=== PATIENT | female | born 1950 | race Caucasian/White ===

== ENCOUNTER 2018-09-15 09:51 | Emergency (ER) | payer MEDICARE, MEDICAID ==
[~2018-09-15] VITALS: Ht 170.2 cm; Wt 90.7 kg
[2018-09-15 09:58] VITALS: BP 130/98
== END 2018-09-15 10:49 | disposition left against medical advice (07) ==
LOC: EDBD 09:51 → ER 09:51
DX: R07.89 Other chest pain (principal); Z53.29 Procedure and treatment not carried out because of patient's decision for other reasons; Z88.0 Allergy status to penicillin
CPT/HCPCS: 71045; 93005

== ENCOUNTER → 2019-06-06 | Emergency (ER) | payer MEDICARE, MEDICAID | END | disposition left against medical advice (07) | LOC: ER 18:59 | DX: M79.646 Pain in unspecified finger(s) (principal); Z53.21 Procedure and treatment not carried out due to patient leaving prior to being seen by health care provider ==

== ENCOUNTER 2021-05-13 17:38 | Inpatient (IN) | payer MEDICARE, MEDICAID ==
[~2021-05-13] VITALS: Ht 162.6 cm; Wt 117.6 kg
[2021-05-13] MEDS ORDERED: DexAMETHasone SOD PHOS 10MG/1ML VIAL INJ IV ONE (19:00)
[2021-05-13 19:23] LABS: Basophils # (auto) 0 10 ^3/uL (0-0.2); Basophils % (auto) 0.3 % (0.0-2.0); Eosinophils # (auto) 0 10 ^3/uL (0-0.8); Hematocrit 38.4 % (36.0-46.0); Hemoglobin 13.1 g/dL (12.2-16.2); Lymphocytes # (auto) 0.6 10 ^3/uL (0.4-5.4); Lymphocytes % (auto) 8.3 % (10.0-50.0); Mean Corpuscular Hemoglobin 30.1 pg (28.0-32.0); Mean Corpuscular Hgb Conc. 34.2 g/dL (32.0-36.0); Mean Corpuscular Volume 88.1 fL (80.0-100.0); Monocytes % (auto) 13.4 % (0.0-12.0); Neutrophils # (auto) 5.6 10 ^3/uL (1.6-8.6); Nucleated Red Blood Cells % 1.1 %; Red Blood Cells 4.36 10^6/uL (4.0-5.20); Red Cell Distribution Width 14.2 % (11.8-14.3); White Blood Cell 7.2 10^3/uL (4.4-10.8)
[2021-05-13 19:41] LABS: Lactic Acid w/Reflex 2.2 mmol/L (0.4-2.0)
[2021-05-13 19:45] LABS: Albumin 2.4 g/dL (3.4-5.0); Calcium 7.8 mg/dL (8.5-10.1)
[2021-05-13 19:51] LABS: BUN/Creatinine Ratio 23.5; Bilirubin, Total 0.8 mg/dL (0.2-1.0); Total Protein 6.2 g/dL (6.4-8.2)
[2021-05-13 20:02] LABS: Potassium 2.8 mmol/L (3.5-5.1)
[2021-05-13] MEDS ORDERED: POTASSIUM CHL 20 Meq TABLET PO ONE (20:30)
[2021-05-13] MEDS ORDERED: ONDANSETRON HCL 4 MG/2 ML VIAL IV PRN (21:45)
[2021-05-13] MEDS ORDERED: ACETAMINOPHEN 500 MG TAB PO PRN (21:45)
[2021-05-13] MEDS ORDERED: AZITHROMYCIN 500MG/ 250ML 250 ML IV SCH (21:45)
[2021-05-13] MEDS ORDERED: DEXTROSE (50%) 50ML SYRG IV PRN (21:45)
[2021-05-13] MEDS ORDERED: MORPHINE SULFATE INJECTION 2 MG/ML SYRG IV PRN (21:45)
[2021-05-13] MEDS ORDERED: NITROGLYCERIN 0.4 MG SL TAB SL PRN (21:45)
[2021-05-13] MEDS: BUDESONIDE (INHALATION) 180 MCG IH IN SCH (22:00)
[2021-05-13] MEDS ORDERED: ATORVASTATIN 20 MG TAB PO SCH (22:00)
[2021-05-13] MEDS ORDERED: levoFLOXacin 250MG 50 ML IV ONE ×2 (22:30→23:04)
[2021-05-13] MEDS ORDERED: ATORVASTATIN 20 MG TAB ONE (23:04)
[2021-05-13] MEDS ORDERED: ENOXAPARIN SOD 40 MG/0.4 ML SYRINGE SC ONE (23:04)
[2021-05-13] MEDS: ACCU-CHEK COMFORT CURVE STRIP VI SCH (23:23)
[2021-05-13] MEDS: ENOXAPARIN SOD 40 MG/0.4 ML SYRINGE SC SCH (23:23)
[2021-05-13] MEDS: InsuLIN REG 1unit/0.01ml Soln (100units/ml) SC SCH (23:24)
[2021-05-13 23:31] LABS: Magnesium 2.4 mg/dL (1.6-2.6)
[2021-05-14 06:42] LABS: Basophils # (auto) 0 10 ^3/uL (0-0.2); Basophils % (auto) 0.2 % (0.0-2.0); Eosinophils # (auto) 0 10 ^3/uL (0-0.8); Hematocrit 35.2 % (36.0-46.0); Hemoglobin 11.8 g/dL (12.2-16.2); Lymphocytes # (auto) 0.6 10 ^3/uL (0.4-5.4); Mean Corpuscular Hemoglobin 29.9 pg (28.0-32.0); Mean Corpuscular Hgb Conc. 33.5 g/dL (32.0-36.0); Mean Corpuscular Volume 89.4 fL (80.0-100.0); Monocytes # (auto) 0.8 10 ^3/uL (0-1.3); Monocytes % (auto) 13.4 % (0.0-12.0); Neutrophils # (auto) 4.4 10 ^3/uL (1.6-8.6); Neutrophils % (auto) 76.4 % (37.0-80.0); Nucleated Red Blood Cells % 0.7 %; Red Blood Cells 3.94 10^6/uL (4.0-5.20); Red Cell Distribution Width 14.5 % (11.8-14.3); White Blood Cell 5.7 10^3/uL (4.4-10.8)
[2021-05-14 06:57] LABS: Albumin 1.8 g/dL (3.4-5.0); BUN/Creatinine Ratio 38.7; Calcium 7.2 mg/dL (8.5-10.1); Potassium 3.5 mmol/L (3.5-5.1)
[2021-05-14 07:01] LABS: Bilirubin, Total 0.5 mg/dL (0.2-1.0); Total Protein 5.4 g/dL (6.4-8.2)
[2021-05-14] MEDS: InsuLIN REG 1unit/0.01ml Soln (100units/ml) SC SCH ×4 (08:22→22:30)
[2021-05-14] MEDS: LEVOTHYROXINE SODIUM 100 MCG TAB PO SCH (08:33)
[2021-05-14] MEDS: ACCU-CHEK COMFORT CURVE STRIP VI SCH ×4 (08:46→22:30)
[2021-05-14] MEDS: BUDESONIDE (INHALATION) 180 MCG IH IN SCH ×2 (10:00→18:00)
[2021-05-14] MEDS ORDERED: ASPirin 81 mg TAB PO SCH ×2 (10:00)
[2021-05-14] MEDS ORDERED: PANTOPRAZOLE 40 MG TAB PO SCH (10:00)
[2021-05-14] MEDS ORDERED: REMDESIVIR PER PHARMACY 0 ML IV SCH (10:45)
[2021-05-14 11:05] LABS: Urine Bacteria MANY /hpf (None Seen); Urine Blood 2+ /uL (Negative); Urine Specific Gravity 1.017 (1.001-1.035); Urine WBC 197 /hpf (0 - 5); Urine WBC Clumps PRESENT /hpf (None Seen)
[2021-05-14] MEDS: ALBUTEROL SULF HFA 90MCG INH 200DOSE IN PRN ×2 (11:20→21:01)
[2021-05-14] MEDS: ZINC SULFATE 220mg CAP or TAB PO SCH (11:29)
[2021-05-14] MEDS: ASCORBIC ACID 1,000 MG TAB PO SCH (11:29)
[2021-05-14] MEDS: levoFLOXacin 250MG 50 ML IV SCH (11:29)
[2021-05-14] MEDS: ENOXAPARIN SOD 40 MG/0.4 ML SYRINGE SC SCH ×2 (11:30→22:30)
[2021-05-14] MEDS: CHOLECALCIFEROL (VITD3) 2,000 UNIT CAP/TAB PO SCH (11:30)
[2021-05-14] MEDS ORDERED: REMDESIVIR 200 MG in NS 210ml LOADING DOSE ADULT IV ONE (12:00)
[2021-05-14] MEDS ORDERED: HYDROmorphone HCL 2 MG/ML VL IV ONE (19:15)
[2021-05-14] MEDS ORDERED: DexAMETHasone SOD PHOS 10MG/1ML VIAL INJ IV SCH (22:00)
[2021-05-15] MEDS: ALBUTEROL SULF HFA 90MCG INH 200DOSE IN PRN ×2 (05:56→21:08)
[2021-05-15] MEDS: BUDESONIDE (INHALATION) 180 MCG IH IN SCH ×2 (05:56→18:45)
[2021-05-15] MEDS: InsuLIN REG 1unit/0.01ml Soln (100units/ml) SC SCH ×4 (07:00→22:05)
[2021-05-15] MEDS: ACCU-CHEK COMFORT CURVE STRIP VI SCH ×4 (07:18→22:05)
[2021-05-15] MEDS: LEVOTHYROXINE SODIUM 100 MCG TAB PO SCH (07:18)
[2021-05-15 07:22] LABS: Albumin 2.3 g/dL (3.4-5.0); Calcium 8.4 mg/dL (8.5-10.1); Potassium 3.8 mmol/L (3.5-5.1)
[2021-05-15 07:27] LABS: BUN/Creatinine Ratio 40.2; Bilirubin, Total 0.6 mg/dL (0.2-1.0); Total Protein 6.4 g/dL (6.4-8.2)
[2021-05-15] MEDS ORDERED: VANCOMYCIN PER PHARMACY 0 MG IV SCH (11:00)
[2021-05-15] MEDS: DexAMETHasone SOD PHOS 10MG/1ML VIAL INJ IV SCH (11:36)
[2021-05-15] MEDS: levoFLOXacin 250MG 50 ML IV SCH (11:37)
[2021-05-15] MEDS: ASPirin-EC 81 mg tab PO SCH (11:37)
[2021-05-15] MEDS: FUROSEMIDE 40 MG/4 ML VIAL IV SCH (11:37)
[2021-05-15] MEDS: ZINC SULFATE 220mg CAP or TAB PO SCH (11:37)
[2021-05-15] MEDS: PANTOPRAZOLE 40 MG TAB PO SCH (11:38)
[2021-05-15] MEDS: POTASSIUM CHL 20 Meq TABLET PO SCH (11:38)
[2021-05-15] MEDS: ASCORBIC ACID 1,000 MG TAB PO SCH (11:38)
[2021-05-15] MEDS: ENOXAPARIN SOD 40 MG/0.4 ML SYRINGE SC SCH (11:38)
[2021-05-15] MEDS: CHOLECALCIFEROL (VITD3) 2,000 UNIT CAP/TAB PO SCH (11:38)
[2021-05-15] MEDS: IVERMECTIN 3 MG TAB PO SCH (11:45)
[2021-05-15] MEDS ORDERED: AMIODARONE HCL 150 MG in D5W 5% 100 ML IV ONE (13:00)
[2021-05-15] MEDS ORDERED: AMIODARONE 450mg/250ml AE 250 ML IV SCH (13:00)
[2021-05-15] MEDS: VANCOMYCIN 1GM/250ML 250 ML IV SCH (13:55)
[2021-05-15] MEDS: REMDESIVIR 100mg 100 MG in SODIUM CHL 0.9% 230 ML IV SCH (15:48)
[2021-05-15] MEDS: AMIODARONE 450mg/250ml AE 250 ML IV SCH ×2 (20:08→22:19)
[2021-05-15 21:00] VITALS: BP 138/73
[2021-05-15 22:00] VITALS: BP 138/73
[2021-05-15] MEDS: APIXABAN 5 MG TAB PO SCH (22:00)
[2021-05-16] MEDS ORDERED: VENL150C3 PO
[2021-05-16] MEDS ORDERED: RISP3TAB44 PO
[2021-05-16] MEDS ORDERED: METO25TA5 PO
[2021-05-16] MEDS ORDERED: AMLO-496 PO
[2021-05-16] MEDS ORDERED: CLON-853 PO
[2021-05-16] MEDS ORDERED: LISI20TA28 PO
[2021-05-16] MEDS ORDERED: GABA-339 PO
[2021-05-16] MEDS ORDERED: GLIP5TAB12 PO
[2021-05-16] MEDS ORDERED: DOCU100T15 PO
[2021-05-16] MEDS ORDERED: LEVO100T69 PO
[2021-05-16] MEDS ORDERED: VENL75CA3 PO
[2021-05-16] MEDS ORDERED: DIVA500T2 PO
[2021-05-16] MEDS ORDERED: HYDR25TA4 PO
[2021-05-16] MEDS: VANCOMYCIN 1GM/250ML 250 ML IV SCH ×3 (00:21→23:47)
[2021-05-16 05:00] VITALS: BP 140/91
[2021-05-16 06:18] LABS: Albumin 2.1 g/dL (3.4-5.0); BUN/Creatinine Ratio 27.8; Calcium 8.2 mg/dL (8.5-10.1); Potassium 3.3 mmol/L (3.5-5.1)
[2021-05-16] MEDS: InsuLIN REG 1unit/0.01ml Soln (100units/ml) SC SCH ×4 (06:18→22:32)
[2021-05-16] MEDS: ACCU-CHEK COMFORT CURVE STRIP VI SCH ×4 (06:18→22:20)
[2021-05-16 06:21] LABS: Bilirubin, Total 0.5 mg/dL (0.2-1.0); Total Protein 5.8 g/dL (6.4-8.2)
[2021-05-16] MEDS: LEVOTHYROXINE SODIUM 100 MCG TAB PO SCH (06:34)
[2021-05-16] MEDS: cefTRIAXone 1GM/50ML D5W 50 ML IV SCH (08:23)
[2021-05-16] MEDS: DexAMETHasone SOD PHOS 10MG/1ML VIAL INJ IV SCH (08:28)
[2021-05-16] MEDS: FUROSEMIDE 40 MG/4 ML VIAL IV SCH (08:30)
[2021-05-16] MEDS: APIXABAN 5 MG TAB PO SCH ×2 (08:31→22:37)
[2021-05-16] MEDS: ASPirin-EC 81 mg tab PO SCH (08:31)
[2021-05-16] MEDS: ZINC SULFATE 220mg CAP or TAB PO SCH (08:31)
[2021-05-16] MEDS: PANTOPRAZOLE 40 MG TAB PO SCH (08:32)
[2021-05-16] MEDS: IVERMECTIN 3 MG TAB PO SCH (08:32)
[2021-05-16] MEDS: POTASSIUM CHL 20 Meq TABLET PO SCH (08:32)
[2021-05-16] MEDS: CHOLECALCIFEROL (VITD3) 2,000 UNIT CAP/TAB PO SCH (08:33)
[2021-05-16] MEDS: ASCORBIC ACID 1,000 MG TAB PO SCH (08:33)
[2021-05-16 08:48] VITALS: BP 154/100
[2021-05-16] MEDS: ALBUTEROL SULF HFA 90MCG INH 200DOSE IN PRN ×2 (09:58→19:47)
[2021-05-16] MEDS: BUDESONIDE (INHALATION) 180 MCG IH IN SCH ×2 (09:58→19:47)
[2021-05-16] MEDS ORDERED: POTASSIUM EFFERVESENT TAB 25 MEQ PO ONE (12:15)
[2021-05-16] MEDS ORDERED: AMIODARONE HCL 200 MG TAB PO ONE (12:15)
[2021-05-16 12:50] VITALS: BP 145/98
[2021-05-16] MEDS ORDERED: VENLAFAXINE HCL 37.5mg XR cap PO ONE (13:00)
[2021-05-16] MEDS ORDERED: risperiDONE 1 MG TAB PO ONE (13:00)
[2021-05-16] MEDS: GABAPENTIN 300 MG CAP PO SCH ×2 (14:02→22:34)
[2021-05-16] MEDS: amLODIPine BESYLATE 5 MG TAB PO SCH (14:07)
[2021-05-16] MEDS: REMDESIVIR 100mg 100 MG in SODIUM CHL 0.9% 230 ML IV SCH (15:49)
[2021-05-16 17:00] VITALS: BP 137/76
[2021-05-16 22:00] VITALS: BP 138/82
[2021-05-16] MEDS: clonazePAM 0.5 MG TAB PO SCH (22:34)
[2021-05-16] MEDS: METOPROLOL TARTRATE 25 MG TAB PO SCH (22:35)
[2021-05-16] MEDS: risperiDONE 1 MG TAB PO SCH (22:36)
[2021-05-16] MEDS: AMIODARONE HCL 200 MG TAB PO SCH (22:37)
[2021-05-17 05:00] VITALS: BP 118/74
[2021-05-17] MEDS: GABAPENTIN 300 MG CAP PO SCH ×3 (05:06→22:07)
[2021-05-17] MEDS: LEVOTHYROXINE SODIUM 100 MCG TAB PO SCH ×2 (06:18)
[2021-05-17] MEDS: ACCU-CHEK COMFORT CURVE STRIP VI SCH ×4 (06:19→21:37)
[2021-05-17] MEDS: InsuLIN REG 1unit/0.01ml Soln (100units/ml) SC SCH ×4 (06:19→21:47)
[2021-05-17 06:44] LABS: Basophils # (auto) 0.1 10 ^3/uL (0-0.2); Basophils % (auto) 0.7 % (0.0-2.0); Eosinophils # (auto) 0 10 ^3/uL (0-0.8); Hematocrit 39.4 % (36.0-46.0); Lymphocytes # (auto) 1.2 10 ^3/uL (0.4-5.4); Lymphocytes % (auto) 11.5 % (10.0-50.0); Mean Corpuscular Hemoglobin 29.4 pg (28.0-32.0); Monocytes # (auto) 1.2 10 ^3/uL (0-1.3); Monocytes % (auto) 11.7 % (0.0-12.0); Neutrophils # (auto) 7.8 10 ^3/uL (1.6-8.6); Neutrophils % (auto) 76.1 % (37.0-80.0); Nucleated Red Blood Cells % 0.1 %; Red Blood Cells 4.43 10^6/uL (4.0-5.20); Red Cell Distribution Width 14.4 % (11.8-14.3); White Blood Cell 10.2 10^3/uL (4.4-10.8)
[2021-05-17 06:51] LABS: Potassium 3.7 mmol/L (3.5-5.1)
[2021-05-17 06:57] LABS: Albumin 2.3 g/dL (3.4-5.0); BUN/Creatinine Ratio 27.9; Bilirubin, Total 0.4 mg/dL (0.2-1.0); Calcium 8.2 mg/dL (8.5-10.1)
[2021-05-17 07:15] LABS: Cholesterol 131 mg/dL (< 200); HDL Cholesterol 40 mg/dL (40-59); LDL Cholesterol 71 mg/dL (< 100); Triglycerides 120 mg/dL (< 150)
[2021-05-17] MEDS: BUDESONIDE (INHALATION) 180 MCG IH IN SCH ×2 (07:39→20:35)
[2021-05-17] MEDS: ALBUTEROL SULF HFA 90MCG INH 200DOSE IN PRN ×2 (07:39→20:35)
[2021-05-17] MEDS: cefTRIAXone 1GM/50ML D5W 50 ML IV SCH (08:38)
[2021-05-17] MEDS: DexAMETHasone SOD PHOS 10MG/1ML VIAL INJ IV SCH (08:40)
[2021-05-17] MEDS: FUROSEMIDE 40 MG/4 ML VIAL IV SCH (08:43)
[2021-05-17] MEDS: ZINC SULFATE 220mg CAP or TAB PO SCH (08:44)
[2021-05-17] MEDS: AMIODARONE HCL 200 MG TAB PO SCH ×2 (08:44→22:03)
[2021-05-17] MEDS: APIXABAN 5 MG TAB PO SCH ×2 (08:45→22:05)
[2021-05-17] MEDS: VENLAFAXINE HCL 37.5mg XR cap PO SCH (08:45)
[2021-05-17] MEDS: ASPirin-EC 81 mg tab PO SCH (08:45)
[2021-05-17] MEDS: METOPROLOL TARTRATE 25 MG TAB PO SCH ×2 (08:46→22:06)
[2021-05-17] MEDS: POTASSIUM CHL 20 Meq TABLET PO SCH (08:46)
[2021-05-17] MEDS: HCTZ 25 MG TAB PO SCH (08:46)
[2021-05-17] MEDS: PANTOPRAZOLE 40 MG TAB PO SCH (08:47)
[2021-05-17] MEDS: amLODIPine BESYLATE 5 MG TAB PO SCH (08:47)
[2021-05-17] MEDS: IVERMECTIN 3 MG TAB PO SCH (08:48)
[2021-05-17] MEDS: risperiDONE 1 MG TAB PO SCH ×2 (08:48→22:07)
[2021-05-17] MEDS: CHOLECALCIFEROL (VITD3) 2,000 UNIT CAP/TAB PO SCH (08:48)
[2021-05-17] MEDS: ASCORBIC ACID 1,000 MG TAB PO SCH (08:48)
[2021-05-17] MEDS: LISINOPRIL 20 MG TAB PO SCH (08:49)
[2021-05-17 09:00] VITALS: BP 136/84
[2021-05-17] MEDS: VANCOMYCIN 1GM/250ML 250 ML IV SCH ×2 (11:52→22:01)
[2021-05-17 13:00] VITALS: BP 114/77
[2021-05-17] MEDS: REMDESIVIR 100mg 100 MG in SODIUM CHL 0.9% 230 ML IV SCH (15:42)
[2021-05-17 17:00] VITALS: BP 118/87
[2021-05-17 22:00] VITALS: BP 116/63
[2021-05-17] MEDS: clonazePAM 0.5 MG TAB PO SCH (22:06)
[2021-05-18 05:00] VITALS: BP 126/92
[2021-05-18] MEDS: VANCOMYCIN 1GM/250ML 250 ML IV SCH (05:08)
[2021-05-18] MEDS: GABAPENTIN 300 MG CAP PO SCH ×3 (05:08→22:09)
[2021-05-18] MEDS: LEVOTHYROXINE SODIUM 100 MCG TAB PO SCH ×2 (06:25)
[2021-05-18] MEDS: ACCU-CHEK COMFORT CURVE STRIP VI SCH ×4 (06:26→22:10)
[2021-05-18] MEDS: InsuLIN REG 1unit/0.01ml Soln (100units/ml) SC SCH ×4 (06:32→22:12)
[2021-05-18 06:46] LABS: Potassium 4.2 mmol/L (3.5-5.1)
[2021-05-18 06:50] LABS: Albumin 2.4 g/dL (3.4-5.0); BUN/Creatinine Ratio 32.4; Bilirubin, Total 0.5 mg/dL (0.2-1.0); Calcium 8.3 mg/dL (8.5-10.1)
[2021-05-18 07:23] LABS: Basophils # (auto) 0 10 ^3/uL (0-0.2); Basophils % (auto) 0.1 % (0.0-2.0); Eosinophils # (auto) 0 10 ^3/uL (0-0.8); Eosinophils % (auto) 0.1 % (0.0-7.0); Hematocrit 40.8 % (36.0-46.0); Hemoglobin 13.8 g/dL (12.2-16.2); Lymphocytes # (auto) 1.2 10 ^3/uL (0.4-5.4); Lymphocytes % (auto) 10.6 % (10.0-50.0); Mean Corpuscular Hemoglobin 29.9 pg (28.0-32.0); Mean Corpuscular Hgb Conc. 33.9 g/dL (32.0-36.0); Mean Corpuscular Volume 88.3 fL (80.0-100.0); Monocytes # (auto) 1.2 10 ^3/uL (0-1.3); Monocytes % (auto) 10.7 % (0.0-12.0); Neutrophils # (auto) 8.7 10 ^3/uL (1.6-8.6); Neutrophils % (auto) 78.5 % (37.0-80.0); Nucleated Red Blood Cells % 0.1 %; Red Blood Cells 4.63 10^6/uL (4.0-5.20); White Blood Cell 11.1 10^3/uL (4.4-10.8)
[2021-05-18 08:38] VITALS: BP 127/84
[2021-05-18] MEDS: BUDESONIDE (INHALATION) 180 MCG IH IN SCH ×2 (10:00→17:52)
[2021-05-18] MEDS: cefTRIAXone 1GM/50ML D5W 50 ML IV SCH (10:06)
[2021-05-18] MEDS: FUROSEMIDE 40 MG/4 ML VIAL IV SCH (10:06)
[2021-05-18] MEDS: DexAMETHasone SOD PHOS 10MG/1ML VIAL INJ IV SCH (10:06)
[2021-05-18] MEDS: ZINC SULFATE 220mg CAP or TAB PO SCH (10:07)
[2021-05-18] MEDS: ASPirin-EC 81 mg tab PO SCH (10:07)
[2021-05-18] MEDS: APIXABAN 5 MG TAB PO SCH ×2 (10:09→22:08)
[2021-05-18] MEDS: VENLAFAXINE HCL 37.5mg XR cap PO SCH (10:09)
[2021-05-18] MEDS: HCTZ 25 MG TAB PO SCH (10:10)
[2021-05-18] MEDS: POTASSIUM CHL 20 Meq TABLET PO SCH (10:11)
[2021-05-18] MEDS: METOPROLOL TARTRATE 25 MG TAB PO SCH ×2 (10:11→22:11)
[2021-05-18] MEDS: PANTOPRAZOLE 40 MG TAB PO SCH (10:12)
[2021-05-18] MEDS: risperiDONE 1 MG TAB PO SCH ×2 (10:12→22:09)
[2021-05-18] MEDS: amLODIPine BESYLATE 5 MG TAB PO SCH (10:12)
[2021-05-18] MEDS: CHOLECALCIFEROL (VITD3) 2,000 UNIT CAP/TAB PO SCH (10:13)
[2021-05-18] MEDS: IVERMECTIN 3 MG TAB PO SCH (10:13)
[2021-05-18] MEDS: ASCORBIC ACID 1,000 MG TAB PO SCH (10:13)
[2021-05-18] MEDS: LISINOPRIL 20 MG TAB PO SCH (10:14)
[2021-05-18] MEDS: AMIODARONE HCL 200 MG TAB PO SCH ×2 (10:15→22:08)
[2021-05-18] MEDS: ALBUTEROL SULF HFA 90MCG INH 200DOSE IN PRN ×2 (10:52→17:52)
[2021-05-18 12:39] VITALS: BP 113/67
[2021-05-18] MEDS: REMDESIVIR 100mg 100 MG in SODIUM CHL 0.9% 230 ML IV SCH (15:51)
[2021-05-18 16:45] VITALS: BP 114/56
[2021-05-18 22:00] VITALS: BP 116/70
[2021-05-18] MEDS: clonazePAM 0.5 MG TAB PO SCH (22:09)
[2021-05-19 05:00] VITALS: BP 111/63
[2021-05-19] MEDS: ALBUTEROL SULF HFA 90MCG INH 200DOSE IN PRN ×2 (06:12→20:27)
[2021-05-19] MEDS: BUDESONIDE (INHALATION) 180 MCG IH IN SCH ×2 (06:12→20:27)
[2021-05-19] MEDS: ACCU-CHEK COMFORT CURVE STRIP VI SCH ×4 (06:55→21:53)
[2021-05-19] MEDS: InsuLIN REG 1unit/0.01ml Soln (100units/ml) SC SCH ×4 (06:55→22:09)
[2021-05-19] MEDS: LEVOTHYROXINE SODIUM 100 MCG TAB PO SCH ×2 (06:56)
[2021-05-19] MEDS: GABAPENTIN 300 MG CAP PO SCH ×3 (06:56→21:53)
[2021-05-19 09:00] VITALS: BP 110/70
[2021-05-19] MEDS: DexAMETHasone SOD PHOS 10MG/1ML VIAL INJ IV SCH (09:53)
[2021-05-19] MEDS: FUROSEMIDE 40 MG/4 ML VIAL IV SCH (09:53)
[2021-05-19] MEDS: AMIODARONE HCL 200 MG TAB PO SCH ×2 (09:53→21:52)
[2021-05-19] MEDS: cefTRIAXone 1GM/50ML D5W 50 ML IV SCH (09:53)
[2021-05-19] MEDS: ZINC SULFATE 220mg CAP or TAB PO SCH (09:53)
[2021-05-19] MEDS: ASPirin-EC 81 mg tab PO SCH (09:54)
[2021-05-19] MEDS: APIXABAN 5 MG TAB PO SCH ×2 (09:54→21:52)
[2021-05-19] MEDS: VENLAFAXINE HCL 37.5mg XR cap PO SCH (09:54)
[2021-05-19] MEDS: HCTZ 25 MG TAB PO SCH (09:54)
[2021-05-19] MEDS: METOPROLOL TARTRATE 25 MG TAB PO SCH ×2 (09:56→21:53)
[2021-05-19] MEDS: amLODIPine BESYLATE 5 MG TAB PO SCH (09:56)
[2021-05-19] MEDS: POTASSIUM CHL 20 Meq TABLET PO SCH (09:56)
[2021-05-19] MEDS: risperiDONE 1 MG TAB PO SCH ×2 (10:26→21:53)
[2021-05-19] MEDS: LISINOPRIL 20 MG TAB PO SCH (10:26)
[2021-05-19] MEDS: IVERMECTIN 3 MG TAB PO SCH (10:26)
[2021-05-19] MEDS: CHOLECALCIFEROL (VITD3) 2,000 UNIT CAP/TAB PO SCH (10:26)
[2021-05-19] MEDS: PANTOPRAZOLE 40 MG TAB PO SCH (10:26)
[2021-05-19] MEDS: ASCORBIC ACID 1,000 MG TAB PO SCH (10:26)
[2021-05-19 10:54] LABS: BUN/Creatinine Ratio 36.7; Calcium 8.3 mg/dL (8.5-10.1); Potassium 4.6 mmol/L (3.5-5.1)
[2021-05-19 13:00] VITALS: BP 115/61
[2021-05-19 17:00] VITALS: BP 104/63
[2021-05-19] MEDS: levoFLOXacin 250 MG TAB PO SCH (18:19)
[2021-05-19] MEDS: clonazePAM 0.5 MG TAB PO SCH (21:52)
[2021-05-19 22:00] VITALS: BP 108/65
[2021-05-19] MEDS ORDERED: AMOXICILLIN/CLAVUL 875 MG TAB PO SCH (22:00)
[2021-05-20 05:00] VITALS: BP 118/73
[2021-05-20] MEDS: GABAPENTIN 300 MG CAP PO SCH ×3 (06:27→21:57)
[2021-05-20] MEDS: ACCU-CHEK COMFORT CURVE STRIP VI SCH ×4 (06:31→21:57)
[2021-05-20] MEDS: InsuLIN REG 1unit/0.01ml Soln (100units/ml) SC SCH ×4 (06:33→21:57)
[2021-05-20] MEDS: LEVOTHYROXINE SODIUM 100 MCG TAB PO SCH ×2 (07:00)
[2021-05-20 07:46] LABS: Potassium 4.1 mmol/L (3.5-5.1)
[2021-05-20 07:57] LABS: BUN/Creatinine Ratio 40.7; Calcium 8.5 mg/dL (8.5-10.1)
[2021-05-20] MEDS: LISINOPRIL 20 MG TAB PO SCH (09:13)
[2021-05-20] MEDS: POTASSIUM CHL 20 Meq TABLET PO SCH (09:13)
[2021-05-20] MEDS: APIXABAN 5 MG TAB PO SCH ×2 (09:14→22:08)
[2021-05-20] MEDS: AMIODARONE HCL 200 MG TAB PO SCH ×2 (09:14→21:56)
[2021-05-20] MEDS: risperiDONE 1 MG TAB PO SCH ×2 (09:14→21:57)
[2021-05-20] MEDS: levoFLOXacin 250 MG TAB PO SCH (09:15)
[2021-05-20] MEDS: PANTOPRAZOLE 40 MG TAB PO SCH (09:15)
[2021-05-20] MEDS: CHOLECALCIFEROL (VITD3) 2,000 UNIT CAP/TAB PO SCH (09:15)
[2021-05-20] MEDS: ZINC SULFATE 220mg CAP or TAB PO SCH (09:15)
[2021-05-20] MEDS: ASPirin-EC 81 mg tab PO SCH (09:16)
[2021-05-20] MEDS: METOPROLOL TARTRATE 25 MG TAB PO SCH ×2 (09:16→21:57)
[2021-05-20] MEDS: ASCORBIC ACID 1,000 MG TAB PO SCH (09:16)
[2021-05-20] MEDS: VENLAFAXINE HCL 37.5mg XR cap PO SCH (09:16)
[2021-05-20] MEDS: FUROSEMIDE 40 MG/4 ML VIAL IV SCH (09:17)
[2021-05-20] MEDS: DexAMETHasone SOD PHOS 10MG/1ML VIAL INJ IV SCH (09:17)
[2021-05-20 09:26] VITALS: BP 102/59
[2021-05-20] MEDS: BUDESONIDE (INHALATION) 180 MCG IH IN SCH ×2 (10:27→21:12)
[2021-05-20] MEDS: ALBUTEROL SULF HFA 90MCG INH 200DOSE IN PRN ×2 (10:27→21:12)
[2021-05-20 12:59] VITALS: BP 110/67
[2021-05-20 17:07] VITALS: BP 102/63
[2021-05-20] MEDS: HYDROcodone-ACET 5/325MG TAB PO PRN (17:34)
[2021-05-20] MEDS: clonazePAM 0.5 MG TAB PO SCH (21:56)
[2021-05-20 22:00] VITALS: BP 111/70
[2021-05-21 04:59] VITALS: BP 115/68
[2021-05-21] MEDS: GABAPENTIN 300 MG CAP PO SCH ×3 (06:04→22:00)
[2021-05-21] MEDS: LEVOTHYROXINE SODIUM 100 MCG TAB PO SCH (06:36)
[2021-05-21] MEDS: ACCU-CHEK COMFORT CURVE STRIP VI SCH ×4 (06:37→22:01)
[2021-05-21] MEDS: InsuLIN REG 1unit/0.01ml Soln (100units/ml) SC SCH ×4 (06:37→21:58)
[2021-05-21 08:29] VITALS: BP 108/73
[2021-05-21] MEDS: ZINC SULFATE 220mg CAP or TAB PO SCH (09:46)
[2021-05-21] MEDS: CHOLECALCIFEROL (VITD3) 2,000 UNIT CAP/TAB PO SCH (09:46)
[2021-05-21] MEDS: DexAMETHasone SOD PHOS 10MG/1ML VIAL INJ IV SCH (09:46)
[2021-05-21] MEDS: PANTOPRAZOLE 40 MG TAB PO SCH (09:47)
[2021-05-21] MEDS: ASPirin-EC 81 mg tab PO SCH (09:47)
[2021-05-21] MEDS: ASCORBIC ACID 1,000 MG TAB PO SCH (09:47)
[2021-05-21] MEDS: METOPROLOL TARTRATE 25 MG TAB PO SCH ×2 (09:47→22:00)
[2021-05-21] MEDS: VENLAFAXINE HCL 37.5mg XR cap PO SCH (09:47)
[2021-05-21] MEDS: levoFLOXacin 250 MG TAB PO SCH (09:48)
[2021-05-21] MEDS: APIXABAN 5 MG TAB PO SCH ×2 (09:48→21:59)
[2021-05-21] MEDS: AMIODARONE HCL 200 MG TAB PO SCH ×2 (09:48→21:59)
[2021-05-21] MEDS: BUDESONIDE (INHALATION) 180 MCG IH IN SCH ×2 (10:00→22:00)
[2021-05-21] MEDS: risperiDONE 1 MG TAB PO SCH ×2 (12:22→22:01)
[2021-05-21 12:46] VITALS: BP 110/75
[2021-05-21] MEDS: ALBUTEROL SULF HFA 90MCG INH 200DOSE IN PRN (14:24)
[2021-05-21 14:52] VITALS: BP 110/75
[2021-05-21 17:12] VITALS: BP 112/69
[2021-05-21 22:00] VITALS: BP 124/70
[2021-05-21] MEDS: clonazePAM 0.5 MG TAB PO SCH (22:00)
[2021-05-22 05:00] VITALS: BP 118/65
[2021-05-22 05:15] VITALS: BP 118/65
[2021-05-22] MEDS: GABAPENTIN 300 MG CAP PO SCH ×2 (05:48→14:19)
[2021-05-22] MEDS: ACCU-CHEK COMFORT CURVE STRIP VI SCH ×2 (06:45→11:20)
[2021-05-22] MEDS: InsuLIN REG 1unit/0.01ml Soln (100units/ml) SC SCH ×2 (06:45→11:24)
[2021-05-22] MEDS: LEVOTHYROXINE SODIUM 100 MCG TAB PO SCH (06:45)
[2021-05-22] MEDS: BUDESONIDE (INHALATION) 180 MCG IH IN SCH (08:39)
[2021-05-22] MEDS: ALBUTEROL SULF HFA 90MCG INH 200DOSE IN PRN (08:40)
[2021-05-22 09:00] VITALS: BP 96/54
[2021-05-22] MEDS: DexAMETHasone SOD PHOS 10MG/1ML VIAL INJ IV SCH (09:17)
[2021-05-22] MEDS: ASPirin-EC 81 mg tab PO SCH (09:17)
[2021-05-22] MEDS: risperiDONE 1 MG TAB PO SCH (09:18)
[2021-05-22] MEDS: CHOLECALCIFEROL (VITD3) 2,000 UNIT CAP/TAB PO SCH (09:18)
[2021-05-22] MEDS: VENLAFAXINE HCL 37.5mg XR cap PO SCH (09:19)
[2021-05-22] MEDS: ZINC SULFATE 220mg CAP or TAB PO SCH (09:19)
[2021-05-22] MEDS: PANTOPRAZOLE 40 MG TAB PO SCH (09:19)
[2021-05-22] MEDS: levoFLOXacin 250 MG TAB PO SCH (09:19)
[2021-05-22] MEDS: HYDROcodone-ACET 5/325MG TAB PO PRN ×2 (09:19→15:56)
[2021-05-22] MEDS: ASCORBIC ACID 1,000 MG TAB PO SCH (09:20)
[2021-05-22] MEDS: AMIODARONE HCL 200 MG TAB PO SCH (09:20)
[2021-05-22] MEDS: METOPROLOL TARTRATE 25 MG TAB PO SCH (09:21)
[2021-05-22] MEDS: APIXABAN 5 MG TAB PO SCH (09:21)
[2021-05-22] MEDS ORDERED: Glucerna Carbsteady SHAKE Vanilla 8oz PO SCH (12:00)
[2021-05-22 13:00] VITALS: BP 107/66
== END 2021-05-22 16:10 | DRG 720 ==
LOC: EDBD 17:38 → ER 18:04 → TELE 21:42 → TELE-EAST 05-15 09:26
PROVIDERS: ADMIT Nurse Practitioner; ATTEND Internal Medicine
PROC: XW033E5 Introduction of Remdesivir Anti-infective into Peripheral Vein, Percutaneous Approach, New Technology Group 5 (ICD-10-PCS; principal; 2021-05-14)
DX: A41.1 Sepsis due to other specified staphylococcus (principal); J96.01 Acute respiratory failure with hypoxia; N17.0 Acute kidney failure with tubular necrosis; J12.82 Pneumonia due to coronavirus disease 2019; I50.43 Acute on chronic combined systolic (congestive) and diastolic (congestive) heart failure; E43 Unspecified severe protein-calorie malnutrition; U07.1 COVID-19; D89.839 Cytokine release syndrome, grade unspecified; I21.A1 Myocardial infarction type 2; I48.91 Unspecified atrial fibrillation; J44.9 Chronic obstructive pulmonary disease, unspecified; E11.9 Type 2 diabetes mellitus without complications; E66.01 Morbid (severe) obesity due to excess calories; I10 Essential (primary) hypertension; E87.6 Hypokalemia; E03.9 Hypothyroidism, unspecified; J98.11 Atelectasis; N18.9 Chronic kidney disease, unspecified; N39.0 Urinary tract infection, site not specified; I48.92 Unspecified atrial flutter; Z23 Encounter for immunization; Z68.42 Body mass index [BMI] 45.0-49.9, adult; Z88.0 Allergy status to penicillin
CPT/HCPCS: 36415; 36600; 71045; 80048; 80053; 80061; 80202; 81001; 82728; 82805; 82962; 83036; 83605; 83615; 83735; 83880; 84443; 84484; 85025; 85379; 86141; 87040; 87077; 87086; 87186; 87426; 93005; 93306; 93970; 94640; 96365; 96367; 96372; 97110; 97116; 97163; 97530; 99291; G0378; J0696; J1100; J1815; J7060

== ENCOUNTER 2021-12-03 11:17 | Emergency (ER) | payer MEDICARE, MEDICAID ==
[~2021-12-03] VITALS: Ht 167.6 cm; Wt 120.0 kg
[~2021-12-03 11:17] MED LIST: AMLO-496 PO; CLON-853 PO; DIVA500T2 PO; DOCU100T15 PO; GABA-339 PO; GLIP5TAB12 PO; HYDR25TA4 PO; LEVO100T69 PO; LISI20TA28 PO; METO25TA5 PO; RISP3TAB44 PO; VENL150C3 PO; VENL75CA3 PO
[2021-12-03] MEDS ORDERED: KETOROLAC TROMETH 30 MG/ML 1ML VIAL IV ONE (13:00)
[2021-12-03] MEDS ORDERED: SODIUM CHLORIDE 0.9% 500 ML IVB ONE (13:00)
[2021-12-03 13:26] LABS: Hematocrit 35.2 % (36.0-46.0); Hemoglobin 11.7 g/dL (12.2-16.2); Mean Corpuscular Hemoglobin 30.2 pg (28.0-32.0); Mean Corpuscular Hgb Conc. 33.1 g/dL (32.0-36.0); Mean Corpuscular Volume 91.3 fL (80.0-100.0); Red Blood Cells 3.86 10^6/uL (4.0-5.20); Red Cell Distribution Width 14.8 % (11.8-14.3); White Blood Cell 7.2 10^3/uL (4.4-10.8)
[2021-12-03 13:32] LABS: Band Neutrophils % (manual) 0; Basophils % (manual) 0 (0.0-2.0); Blast Cells 0; Eosinophils % (manual) 0 (0-7); Metamyelocytes % 0; Myelocytes % 0; Promyelocytes % 0; Reactive Lymphocytes 0
[2021-12-03 13:47] LABS: Lymphocytes % (manual) 19 (10.0-50.0); Monocytes % (manual) 19 (0-12)
[2021-12-03 13:48] LABS: Albumin 2.7 g/dL (3.4-5.0); Calcium 8.4 mg/dL (8.5-10.1); Magnesium 2.4 mg/dL (1.6-2.6); Potassium 3.3 mmol/L (3.5-5.1)
[2021-12-03 13:52] LABS: Bilirubin, Total 0.6 mg/dL (0.2-1.0); Total Protein 5.6 g/dL (6.4-8.2)
[2021-12-03] MEDS ORDERED: IOHEXOL 300 MG/ML 100ML BOTTLE IJ ONE (14:03)
[2021-12-03] MEDS ORDERED: FLEET ENEMA(ADULT) 135 ML PR ONE (16:15)
[2021-12-03] MEDS ORDERED: cefTRIAXone 1GM/50ML D5W 50 ML IV ONE (16:15)
[2021-12-03 16:31] LABS: Urine Bacteria MANY /hpf (None Seen); Urine Blood 1+ /uL (Negative); Urine Mucus MODERATE (None Seen); Urine WBC 211 /hpf (0 - 5)
[2021-12-03] MEDS ORDERED: CEPH-322 PO (18:16)
[2021-12-04 10:00] VITALS: BP 97/70
== END 2021-12-04 10:21 | disposition home or self-care (01) ==
LOC: ER 11:17 → EDBD 11:17 → ER 12-04 10:21
DX: R53.83 Other fatigue (principal); N39.0 Urinary tract infection, site not specified; I11.0 Hypertensive heart disease with heart failure; I50.9 Heart failure, unspecified; E11.9 Type 2 diabetes mellitus without complications; J44.9 Chronic obstructive pulmonary disease, unspecified; Z79.899 Other long term (current) drug therapy; Z88.0 Allergy status to penicillin; Z20.822 Contact with and (suspected) exposure to COVID-19
CPT/HCPCS: 36415; 74177; 80053; 81001; 83605; 83735; 84484; 85007; 85027; 87426; 93005; 96365; 96375; 99285; J0696; J1885; J7040; Q9967

== ENCOUNTER 2021-12-26 17:06 | Inpatient (IN) | payer MEDICARE, MEDICAID ==
[~2021-12-26] VITALS: Ht 177.8 cm; Wt 121.8 kg
[~2021-12-26 17:06] MED LIST changes: +CEPH-322 PO
[2021-12-26] MEDS ORDERED: DEXTROSE (ORAL) 12.5g/31ml 0.4g/ml GEL PO ONE (19:30)
[2021-12-26 19:48] LABS: Basophils # (auto) 0 10 ^3/uL (0-0.2); Basophils % (auto) 0.4 % (0.0-2.0); Eosinophils # (auto) 0 10 ^3/uL (0-0.8); Eosinophils % (auto) 0.1 % (0.0-7.0); Hematocrit 35.9 % (36.0-46.0); Hemoglobin 12.4 g/dL (12.2-16.2); Lymphocytes # (auto) 0.9 10 ^3/uL (0.4-5.4); Lymphocytes % (auto) 11.6 % (10.0-50.0); Mean Corpuscular Hemoglobin 30.2 pg (28.0-32.0); Mean Corpuscular Hgb Conc. 34.5 g/dL (32.0-36.0); Mean Corpuscular Volume 87.7 fL (80.0-100.0); Monocytes % (auto) 12.7 % (0.0-12.0); Neutrophils % (auto) 75.2 % (37.0-80.0); Red Cell Distribution Width 14.1 % (11.8-14.3); White Blood Cell 7.9 10^3/uL (4.4-10.8)
[2021-12-26 20:29] LABS: Albumin 3.2 g/dL (3.4-5.0); Calcium 8.6 mg/dL (8.5-10.1)
[2021-12-26] MEDS ORDERED: ACETAMINOPHEN 325 MG TAB PO ONE (20:30)
[2021-12-26 20:44] LABS: Bilirubin, Total 0.4 mg/dL (0.2-1.0); Total Protein 6.1 g/dL (6.4-8.2)
[2021-12-26 21:00] LABS: Potassium 2.8 mmol/L (3.5-5.1)
[2021-12-26] MEDS ORDERED: DEXTROSE (50%) 50ML SYRG IV ONE ×2 (21:45→22:00)
[2021-12-26] MEDS ORDERED: POTASSIUM EFFERVESENT TAB 25 MEQ PO ONE (21:45)
[2021-12-26] MEDS ORDERED: ACCU-CHEK COMFORT CURVE STRIP VI ONE ×2 (21:45→22:00)
[2021-12-27] MEDS ORDERED: D5W/SOD CHL 0.45%/KCL 20MEQ 1,000 ML IV ONE (00:30)
[2021-12-27] MEDS ORDERED: D5W/SOD CHL 0.45% 1,000 ML IV ONE ×2 (01:15→04:45)
[2021-12-27] MEDS ORDERED: POTASSIUM CHL 20MEQ/100ML 100 ML IV ONE (01:45)
[2021-12-27] MEDS ORDERED: ACETAMINOPHEN 325 MG TAB PO PRN (04:45)
[2021-12-27] MEDS ORDERED: DEXTROSE (50%) 50ML SYRG IV PRN (04:45)
[2021-12-27] MEDS ORDERED: DOCUSATE SOD 100 MG CAP PO PRN (04:45)
[2021-12-27] MEDS ORDERED: ACETAMINOPHEN 325 MG TAB PO ONE (05:00)
[2021-12-27] MEDS: ONDANSETRON HCL 4 MG/2 ML VIAL IV PRN ×4 (05:35→20:29)
[2021-12-27] MEDS: MORPHINE SULFATE INJ 2 MG/ml SYRG IV PRN ×4 (05:39→20:28)
[2021-12-27] MEDS: ACCU-CHEK COMFORT CURVE STRIP VI SCH ×20 (05:42→23:45)
[2021-12-27] MEDS: LEVOTHYROXINE SODIUM 100 MCG TAB PO SCH (06:47)
[2021-12-27] MEDS ORDERED: MAGNESIUM SULFATE 1GM/100ML 100 ML IV ONE (07:15)
[2021-12-27 08:03] LABS: Urine Amorphous Crystal FEW /hpf (None Seen); Urine Bacteria FEW /hpf (None Seen); Urine Blood Negative /uL (Negative); Urine Specific Gravity 1.005 (1.001-1.035); Urine WBC 3 /hpf (0 - 5)
[2021-12-27 08:07] LABS: Alcohol, Urine < 3.0 mg/dL (0-10); Amphetamine Screen, Urine NEGATIVE (NEGATIVE); Barbiturate Scree,Urine NEGATIVE (NEGATIVE); Benzodiazephine Screen, Urine NEGATIVE (NEGATIVE); Cannabinoid Screen, Urine NEGATIVE (NEGATIVE); Cocaine Screen, Urine NEGATIVE (NEGATIVE); Opiate Scree,Urine NEGATIVE (NEGATIVE); Phencyclidine Screen, Urine NEGATIVE (NEGATIVE)
[2021-12-27 08:39] LABS: Basophils # (auto) 0 10 ^3/uL (0-0.2); Basophils % (auto) 0.6 % (0.0-2.0); Eosinophils # (auto) 0 10 ^3/uL (0-0.8); Eosinophils % (auto) 0.5 % (0.0-7.0); Hematocrit 36.1 % (36.0-46.0); Hemoglobin 12.3 g/dL (12.2-16.2); Lymphocytes % (auto) 13.1 % (10.0-50.0); Mean Corpuscular Hemoglobin 30.1 pg (28.0-32.0); Mean Corpuscular Hgb Conc. 34.2 g/dL (32.0-36.0); Mean Corpuscular Volume 88.1 fL (80.0-100.0); Monocytes # (auto) 1.1 10 ^3/uL (0-1.3); Monocytes % (auto) 14.3 % (0.0-12.0); Neutrophils # (auto) 5.5 10 ^3/uL (1.6-8.6); Neutrophils % (auto) 71.5 % (37.0-80.0); Nucleated Red Blood Cells % 0.2 %; Red Blood Cells 4.09 10^6/uL (4.0-5.20); Red Cell Distribution Width 14.3 % (11.8-14.3); White Blood Cell 7.6 10^3/uL (4.4-10.8)
[2021-12-27 09:10] LABS: Calcium 8.2 mg/dL (8.5-10.1)
[2021-12-27] MEDS: LISINOPRIL 20 MG TAB PO SCH (10:11)
[2021-12-27] MEDS: amLODIPine BESYLATE 5 MG TAB PO SCH (10:12)
[2021-12-27] MEDS: HCTZ 25 MG TAB PO SCH (10:15)
[2021-12-27] MEDS: POTASSIUM CHL 20MEQ/100ML 100 ML IV SCH ×3 (14:51→22:25)
[2021-12-27] MEDS: risperiDONE 1 MG TAB PO SCH (18:00)
[2021-12-27] MEDS: clonazePAM 0.5 MG TAB PO SCH (18:00)
[2021-12-27 22:50] VITALS: BP 121/67
[2021-12-27 22:56] VITALS: BP 121/67
[2021-12-27 22:57] VITALS: BP 133/70
[2021-12-27] MEDS: APIXABAN 5 MG TAB PO SCH (23:09)
[2021-12-27] MEDS ORDERED: APIX5TAB PO (23:29)
[2021-12-27] MEDS ORDERED: INSREG3 (23:29)
[2021-12-27] MEDS ORDERED: LEVO200T7 PO (23:29)
[2021-12-28] MEDS ORDERED: POTASSIUM CHL 20MEQ/100ML 100 ML IV SCH (00:45)
[2021-12-28] MEDS: ACCU-CHEK COMFORT CURVE STRIP VI SCH ×12 (01:08→22:07)
[2021-12-28] MEDS ORDERED: DOCU100T15 PO (03:22)
[2021-12-28] MEDS ORDERED: SIMV10TA84 PO (03:22)
[2021-12-28] MEDS ORDERED: MET25T PO (03:22)
[2021-12-28] MEDS ORDERED: POTA10TA51 PO (03:22)
[2021-12-28 05:00] VITALS: BP 154/66
[2021-12-28] MEDS ORDERED: AMIO200T33 PO (05:51)
[2021-12-28] MEDS: LEVOTHYROXINE SODIUM 100 MCG TAB PO SCH (07:05)
[2021-12-28 08:10] VITALS: BP 145/61
[2021-12-28 08:43] LABS: BUN/Creatinine Ratio 21.2; Potassium 3.6 mmol/L (3.5-5.1)
[2021-12-28 09:20] VITALS: BP 145/61
[2021-12-28] MEDS: LISINOPRIL 20 MG TAB PO SCH (09:50)
[2021-12-28] MEDS: amLODIPine BESYLATE 5 MG TAB PO SCH (09:50)
[2021-12-28] MEDS: APIXABAN 5 MG TAB PO SCH (09:51)
[2021-12-28] MEDS: HCTZ 25 MG TAB PO SCH (09:51)
[2021-12-28] MEDS ORDERED: MAGNESIUM SULFATE 1GM/100ML 100 ML IV ONE (10:15)
[2021-12-28] MEDS ORDERED: POTASSIUM CHL 20 Meq TABLET PO ONE (10:15)
[2021-12-28] MEDS ORDERED: DEXTROSE (50%) 50ML SYRG IV PRN (10:45)
[2021-12-28 11:14] LABS: Hematocrit 36.2 % (36.0-46.0); Hemoglobin 12.1 g/dL (12.2-16.2); Mean Corpuscular Hgb Conc. 33.4 g/dL (32.0-36.0); Mean Corpuscular Volume 89.9 fL (80.0-100.0); Red Blood Cells 4.02 10^6/uL (4.0-5.20); Red Cell Distribution Width 14.5 % (11.8-14.3); White Blood Cell 6.9 10^3/uL (4.4-10.8)
[2021-12-28 11:22] LABS: Band Neutrophils % (manual) 0; Basophils % (manual) 0 (0.0-2.0); Blast Cells 0; Eosinophils % (manual) 0 (0-7); Metamyelocytes % 0; Myelocytes % 0; Promyelocytes % 0; Reactive Lymphocytes 0
[2021-12-28] MEDS: InsuLIN REG 1unit/0.01ml Soln (100units/ml) SC SCH ×3 (11:26→22:00)
[2021-12-28 11:42] LABS: Lymphocytes % (manual) 14 (10.0-50.0); Monocytes % (manual) 14 (0-12)
[2021-12-28 12:36] VITALS: BP 133/72
[2021-12-28 17:10] VITALS: BP 142/63
[2021-12-28] MEDS: risperiDONE 1 MG TAB PO SCH (17:42)
[2021-12-28] MEDS: clonazePAM 0.5 MG TAB PO SCH (17:42)
[2021-12-28 22:00] VITALS: BP 116/69
[2021-12-28] MEDS: ENOXAPARIN SOD 120 MG/0.8 ML SYRINGE SC SCH (22:58)
[2021-12-29 05:00] VITALS: BP 117/73
[2021-12-29 05:48] LABS: Basophils # (auto) 0 10 ^3/uL (0-0.2); Basophils % (auto) 0.8 % (0.0-2.0); Eosinophils # (auto) 0.2 10 ^3/uL (0-0.8); Eosinophils % (auto) 3.7 % (0.0-7.0); Hematocrit 38.5 % (36.0-46.0); Hemoglobin 13.1 g/dL (12.2-16.2); Lymphocytes # (auto) 1.9 10 ^3/uL (0.4-5.4); Lymphocytes % (auto) 30.6 % (10.0-50.0); Mean Corpuscular Hemoglobin 30.4 pg (28.0-32.0); Mean Corpuscular Volume 89.5 fL (80.0-100.0); Monocytes # (auto) 0.9 10 ^3/uL (0-1.3); Monocytes % (auto) 13.5 % (0.0-12.0); Neutrophils # (auto) 3.3 10 ^3/uL (1.6-8.6); Neutrophils % (auto) 51.4 % (37.0-80.0); Nucleated Red Blood Cells % 0.1 %; Red Cell Distribution Width 14.3 % (11.8-14.3); White Blood Cell 6.4 10^3/uL (4.4-10.8)
[2021-12-29 05:58] LABS: INR 0.97 (0.9-1.15)
[2021-12-29 05:59] LABS: BUN/Creatinine Ratio 16.3; Magnesium 1.9 mg/dL (1.6-2.6); Potassium 3.5 mmol/L (3.5-5.1)
[2021-12-29] MEDS: LEVOTHYROXINE SODIUM 100 MCG TAB PO SCH (07:00)
[2021-12-29] MEDS: InsuLIN REG 1unit/0.01ml Soln (100units/ml) SC SCH ×5 (07:00→22:00)
[2021-12-29] MEDS: ACCU-CHEK COMFORT CURVE STRIP VI SCH ×4 (07:22→22:00)
[2021-12-29 07:40] VITALS: BP 141/80
[2021-12-29] MEDS: HCTZ 25 MG TAB PO SCH (09:32)
[2021-12-29] MEDS: LISINOPRIL 20 MG TAB PO SCH (09:32)
[2021-12-29] MEDS: ENOXAPARIN SOD 120 MG/0.8 ML SYRINGE SC SCH ×2 (09:32→22:00)
[2021-12-29] MEDS: amLODIPine BESYLATE 5 MG TAB PO SCH (09:32)
[2021-12-29 12:02] VITALS: BP 140/69
[2021-12-29] MEDS: HYDROcodone-ACET 5/325MG TAB PO PRN (12:43)
[2021-12-29] MEDS ORDERED: POTASSIUM CHL 20 Meq TABLET PO ONE (16:00)
[2021-12-29] MEDS ORDERED: MAGNESIUM OXIDE 400 MG TAB PO ONE (16:00)
[2021-12-29 16:45] VITALS: BP 110/46
[2021-12-29 16:52] VITALS: BP 104/50
[2021-12-29] MEDS: risperiDONE 1 MG TAB PO SCH (17:40)
[2021-12-29] MEDS: clonazePAM 0.5 MG TAB PO SCH (17:40)
[2021-12-29 22:28] VITALS: BP 113/81
[2021-12-30] VITALS (12 sets, daily range): BP systolic 109–140; BP diastolic 52–83
[2021-12-30] MEDS: InsuLIN REG 1unit/0.01ml Soln (100units/ml) SC SCH ×4 (06:16→22:18)
[2021-12-30] MEDS: ACCU-CHEK COMFORT CURVE STRIP VI SCH ×4 (06:16→21:46)
[2021-12-30 06:58] LABS: Basophils # (auto) 0.1 10 ^3/uL (0-0.2); Eosinophils # (auto) 0.4 10 ^3/uL (0-0.8); Eosinophils % (auto) 5.8 % (0.0-7.0); Hematocrit 38.2 % (36.0-46.0); Hemoglobin 12.9 g/dL (12.2-16.2); Lymphocytes # (auto) 1.9 10 ^3/uL (0.4-5.4); Lymphocytes % (auto) 30.8 % (10.0-50.0); Mean Corpuscular Hemoglobin 30.5 pg (28.0-32.0); Mean Corpuscular Hgb Conc. 33.7 g/dL (32.0-36.0); Mean Corpuscular Volume 90.5 fL (80.0-100.0); Monocytes # (auto) 0.8 10 ^3/uL (0-1.3); Monocytes % (auto) 12.3 % (0.0-12.0); Neutrophils # (auto) 3.1 10 ^3/uL (1.6-8.6); Neutrophils % (auto) 50.1 % (37.0-80.0); Nucleated Red Blood Cells % 0.1 %; Red Blood Cells 4.22 10^6/uL (4.0-5.20); Red Cell Distribution Width 14.4 % (11.8-14.3); White Blood Cell 6.2 10^3/uL (4.4-10.8)
[2021-12-30] MEDS: LEVOTHYROXINE SODIUM 100 MCG TAB PO SCH (07:00)
[2021-12-30 07:18] LABS: Anion Gap 10 (5-15); BUN/Creatinine Ratio 13.7; Blood Urea Nitrogen 7 mg/dL (7-18); Calcium 8.2 mg/dL (8.5-10.1); Carbon Dioxide 30 mmol/L (21-32); Chloride 96 mmol/L (98-107); GFR African American 154 mL/min; GFR Non-African American 127 mL/min; Glucose 99 mg/dL (74-106); Sodium 136 mmol/L (136-145)
[2021-12-30] MEDS ORDERED: VANCOMYCIN HCL 1000 MG VL ONE (08:08)
[2021-12-30] MEDS ORDERED: VANCOMYCIN 1GM/250ML 250 ML IV ONE (08:08)
[2021-12-30] MEDS ORDERED: MIDAZOLAM HCL 2MG/2ML 2ml VIAL (1mg/ml) ONE (08:08)
[2021-12-30] MEDS ORDERED: IODIXANOL 320MG/ML 100ML BTL IV ONE (08:08)
[2021-12-30] MEDS ORDERED: fentaNYL CITRATE 100 MCG/2 ML VL ONE (08:08)
[2021-12-30] MEDS ORDERED: LIDOCAINE 2%HCL (LOCAL ANESTH.) INJ 20ML MDV ONE ×2 (08:09→08:47)
[2021-12-30] MEDS ORDERED: diphenhdrAMINE HCL 50 MG/1 ML VL ONE (08:26)
[2021-12-30] MEDS: ENOXAPARIN SOD 120 MG/0.8 ML SYRINGE SC SCH ×2 (10:00→21:47)
[2021-12-30] MEDS: amLODIPine BESYLATE 5 MG TAB PO SCH (11:34)
[2021-12-30] MEDS: LISINOPRIL 20 MG TAB PO SCH (11:35)
[2021-12-30] MEDS: HCTZ 25 MG TAB PO SCH (11:35)
[2021-12-30] MEDS: MAGNESIUM OXIDE 400 MG TAB PO SCH (11:36)
[2021-12-30] MEDS: HYDROcodone-ACET 5/325MG TAB PO PRN ×2 (14:41→22:15)
[2021-12-30] MEDS: risperiDONE 1 MG TAB PO SCH (17:10)
[2021-12-30] MEDS: clonazePAM 0.5 MG TAB PO SCH (17:10)
[2021-12-31] MEDS ORDERED: TEMAZEPAM 15 MG CAP PO ONE ×2 (03:15→20:00)
[2021-12-31 05:00] VITALS: BP 127/64
[2021-12-31 05:08] LABS: Basophils # (auto) 0.1 10 ^3/uL (0-0.2); Eosinophils # (auto) 0.4 10 ^3/uL (0-0.8); Eosinophils % (auto) 4.8 % (0.0-7.0); Hematocrit 34.1 % (36.0-46.0); Hemoglobin 11.3 g/dL (12.2-16.2); Mean Corpuscular Hemoglobin 30.1 pg (28.0-32.0); Mean Corpuscular Hgb Conc. 33.3 g/dL (32.0-36.0); Mean Corpuscular Volume 90.5 fL (80.0-100.0); Monocytes # (auto) 1.1 10 ^3/uL (0-1.3); Monocytes % (auto) 11.8 % (0.0-12.0); Neutrophils # (auto) 4.5 10 ^3/uL (1.6-8.6); Neutrophils % (auto) 49.4 % (37.0-80.0); Red Blood Cells 3.76 10^6/uL (4.0-5.20); Red Cell Distribution Width 14.5 % (11.8-14.3); White Blood Cell 9.1 10^3/uL (4.4-10.8)
[2021-12-31 05:34] LABS: Calcium 8.1 mg/dL (8.5-10.1); Potassium 3.6 mmol/L (3.5-5.1)
[2021-12-31 05:35] LABS: BUN/Creatinine Ratio 22.6
[2021-12-31] MEDS: LEVOTHYROXINE SODIUM 100 MCG TAB PO SCH (06:40)
[2021-12-31] MEDS: ACCU-CHEK COMFORT CURVE STRIP VI SCH ×4 (06:41→21:30)
[2021-12-31] MEDS: InsuLIN REG 1unit/0.01ml Soln (100units/ml) SC SCH ×4 (06:41→22:00)
[2021-12-31 09:00] VITALS: BP 159/84
[2021-12-31] MEDS ORDERED: POTASSIUM CHL 20 Meq TABLET PO ONE (09:00)
[2021-12-31] MEDS: MAGNESIUM OXIDE 400 MG TAB PO SCH (09:48)
[2021-12-31] MEDS: APIXABAN 5 MG TAB PO SCH ×2 (09:49→21:23)
[2021-12-31] MEDS: HCTZ 25 MG TAB PO SCH (09:49)
[2021-12-31] MEDS: LISINOPRIL 20 MG TAB PO SCH (09:49)
[2021-12-31] MEDS: METOPROLOL SUCCINATE XL 50 MG TAB PO SCH (09:49)
[2021-12-31] MEDS ORDERED: DIGOXIN (250MCG/ML) 2 ML AMPULE IV ONE (10:45)
[2021-12-31 13:26] VITALS: BP 165/92
[2021-12-31 13:48] VITALS: BP 136/72
[2021-12-31 16:08] VITALS: BP 142/75
[2021-12-31] MEDS: risperiDONE 1 MG TAB PO SCH (16:54)
[2021-12-31] MEDS: clonazePAM 0.5 MG TAB PO SCH (16:54)
[2021-12-31 22:00] VITALS: BP 120/56
[2022-01-01 05:00] VITALS: BP 128/57
[2022-01-01] MEDS: LEVOTHYROXINE SODIUM 100 MCG TAB PO SCH (06:13)
[2022-01-01] MEDS: InsuLIN REG 1unit/0.01ml Soln (100units/ml) SC SCH ×2 (06:13→11:30)
[2022-01-01] MEDS: ACCU-CHEK COMFORT CURVE STRIP VI SCH ×2 (06:14→11:30)
[2022-01-01] MEDS: MAGNESIUM OXIDE 400 MG TAB PO SCH (09:30)
[2022-01-01] MEDS: LISINOPRIL 20 MG TAB PO SCH (09:31)
[2022-01-01] MEDS: HCTZ 25 MG TAB PO SCH (09:31)
[2022-01-01] MEDS: APIXABAN 5 MG TAB PO SCH (09:31)
[2022-01-01] MEDS: METOPROLOL SUCCINATE XL 50 MG TAB PO SCH (09:32)
[2022-01-01] MEDS ORDERED: DIGOXIN 0.125 MG TAB PO SCH (10:00)
[2022-01-01 11:04] VITALS: BP 109/64
== END 2022-01-01 14:48 | DRG 171 ==
LOC: EDBD 17:06 → ER 17:06 → EDUNIT# 17:06 → OVERFLOW 12-27 05:02 → TELE-WESTW 12-27 22:25
PROVIDERS: ADMIT Hospitalist; ATTEND Internal Medicine Pulmonary Disease
PROC: 0JH606Z Insertion of Pacemaker, Dual Chamber into Chest Subcutaneous Tissue and Fascia, Open Approach (ICD-10-PCS; principal; 2021-12-30)
PROC: 02H63JZ Insertion of Pacemaker Lead into Right Atrium, Percutaneous Approach (ICD-10-PCS; 2021-12-30)
PROC: 02HK3JZ Insertion of Pacemaker Lead into Right Ventricle, Percutaneous Approach (ICD-10-PCS; 2021-12-30)
DX: I49.5 Sick sinus syndrome (principal); E11.649 Type 2 diabetes mellitus with hypoglycemia without coma; I50.32 Chronic diastolic (congestive) heart failure; I11.0 Hypertensive heart disease with heart failure; E87.6 Hypokalemia; F20.9 Schizophrenia, unspecified; J44.9 Chronic obstructive pulmonary disease, unspecified; Z20.822 Contact with and (suspected) exposure to COVID-19; I48.0 Paroxysmal atrial fibrillation; E03.9 Hypothyroidism, unspecified; E66.01 Morbid (severe) obesity due to excess calories; Z88.0 Allergy status to penicillin; Z68.36 Body mass index [BMI] 36.0-36.9, adult; Z79.01 Long term (current) use of anticoagulants; Z79.4 Long term (current) use of insulin; Z79.84 Long term (current) use of oral hypoglycemic drugs
CPT/HCPCS: 33208; 36415; 71045; 80048; 80053; 80307; 81001; 82962; 83036; 83735; 83880; 84443; 84484; 85007; 85025; 85027; 85610; 85730; 86850; 86900; 86901; 93005; 96365; 96375; 99152; 99153; C1785; G0378; J1815; J2250; J2405; J3480; Q9967

== ENCOUNTER → 2022-08-23 | Outpatient (CLI) | payer MEDICARE, MEDICAID ==
[~2022-08-23] MED LIST changes: +AMIO200T33 PO; +APIX5TAB PO; +INSREG3; -LEVO100T69 PO; +LEVO200T7 PO; +MET25T PO; +POTA10TA51 PO; +SIMV10TA84 PO
== END | disposition home or self-care (01) ==
LOC: XYW 09:36
PROVIDERS: ATTEND Nurse Practitioner Acute Care
DX: I08.0 Rheumatic disorders of both mitral and aortic valves (principal); I48.0 Paroxysmal atrial fibrillation
CPT/HCPCS: 93306